=== PATIENT | male | born 1995 | race Hispanic/Latino ===

== ENCOUNTER 2020-10-14 13:05 | Emergency (ER) | payer SELFPAY ==
[~2020-10-14] VITALS: Ht 167.6 cm; Wt 66.0 kg
[~2020-10-14 13:05] MED LIST: HYDROCODONE/ACE1 TAB PO; MEDDOSEPAK PO; MOTRIN800 MG PO; NAPROSYN500 MG PO
[2020-10-14] MEDS ORDERED: HYDROCORTISONE1 % EX (13:47)
[2020-10-14 14:15] VITALS: BP 172/93
== END 2020-10-14 14:16 | disposition home or self-care (01) | DRG 607 ==
LOC: ED 13:05
DX: L65.9 Nonscarring hair loss, unspecified (principal)

== ENCOUNTER 2021-05-06 07:23 | Emergency (ER) | payer SELFPAY ==
[~2021-05-06] VITALS: Ht 167.6 cm; Wt 75.0 kg
[~2021-05-06 07:23] MED LIST changes: +HYDROCORTISONE1 % EX
[2021-05-06 08:54] LABS: URINE BILIRUBIN - DIPSTICK NEGATIVE (NEGATIVE); URINE BLOOD DIPSTICK NEGATIVE (NEGATIVE); URINE CLARITY CLEAR; URINE COLOR YELLOW; URINE GLUCOSE - DIPSTICK NEGATIVE (NEGATIVE); URINE KETONE NEGATIVE (NEGATIVE); URINE LEUK ESTERASE NEGATIVE (Negative); URINE NITRITE - DIPSTICK NEGATIVE (Negative); URINE PROTEIN - DIPSTICK TRACE mg/dL (NEG-TRACE); URINE SPECIFIC GRAVITY >=1.030; URINE UROBILINOGEN - DIPSTICK 0.2 E.U./dL (0.2)
[2021-05-06 10:14] VITALS: BP 122/89
== END 2021-05-06 10:14 | disposition home or self-care (01) | DRG 179 ==
LOC: ED 07:23
PROVIDERS: Family Medicine
DX: U07.1 COVID-19 (principal); F17.200 Nicotine dependence, unspecified, uncomplicated